=== PATIENT | male | born 1985 | race Two or more races ===

== ENCOUNTER 2024-03-29 19:12 | Emergency (ER) | payer OTHER ==
[~2024-03-29] VITALS: Ht 188 cm; Wt 122.7 kg
[2024-03-29 19:21] VITALS: TEMP 98.3
[2024-03-29 21:15] VITALS: BP 150/95; PULSE 65; RESP 20; O2SAT 98
[2024-03-29] MEDS ORDERED: CEPH-558 PO (23:53)
[2024-03-30] MEDS: CEPHALEXIN MONOHYDRATE 500 MG CAPSULE PO ONE (00:01)
== END 2024-03-30 01:10 | disposition home or self-care (01) ==
LOC: EMS 19:12
DX: S90.822A Blister (nonthermal), left foot, initial encounter (principal); X58.XXXA Exposure to other specified factors, initial encounter; Y93.89 Activity, other specified; Y92.89 Other specified places as the place of occurrence of the external cause; Y99.8 Other external cause status
CPT/HCPCS: 99283

== ENCOUNTER 2024-05-14 15:25 | Emergency (ER) | payer OTHER ==
[~2024-05-14] VITALS: Ht 188 cm; Wt 109.1 kg
[~2024-05-14 15:25] MED LIST: CEPH-558 PO
[2024-05-14 15:27] VITALS: TEMP 99.7
[2024-05-14] MEDS: ONDANSETRON 4 MG TABLET PO ONE (16:43)
[2024-05-14] MEDS: GLUCAGON,HUMAN RECOMBINANT 1 MG VIAL IM ONE (16:43)
[2024-05-14 17:30] VITALS: BP 151/86; PULSE 71; RESP 17; O2SAT 97
== END 2024-05-14 18:31 | disposition home or self-care (01) ==
LOC: EMS 17:11
DX: R09.A2 Foreign body sensation, throat (principal)
CPT/HCPCS: 99283; 71046; 96372; J1610; Q0162